=== PATIENT | male | born 1975 | race Caucasian/White ===

== ENCOUNTER → 2024-10-05 13:46 | Outpatient (REF) | payer BC, SELFPAY | LOC: EMG 13:46 | PROVIDERS: ATTENDING PHYSICIAN Orthopaedic Surgery Hand Surgery; FAMILY PHYSICIAN Internal Medicine | DX: M25.521 Pain in right elbow (principal); R20.0 Anesthesia of skin | CPT/HCPCS: 95886; 95910 ==